=== PATIENT | female | born 1965 | race Caucasian/White ===

== ENCOUNTER 2020-11-11 08:50 | Emergency (ER) | payer OTHER ==
[~2020-11-11 08:50] MED LIST: FERROUS SULFAT325 M2 PO; HYDROCHLOROTHIA25 MG PO; LEVAQUIN TAB 5500 MG PO; LEVEMIR 10100 UNITS/ SC; LISINOPRIL20 MG PO; ZOCOR20 MG PO
[2020-11-11] MEDS ORDERED: OMNICEF 300 MG300 MG PO (09:22)
== END 2020-11-11 09:46 | disposition home or self-care (01) ==
LOC: ER1 08:50
DX: J01.90 Acute sinusitis, unspecified (principal); I10 Essential (primary) hypertension; Z88.0 Allergy status to penicillin; Z79.899 Other long term (current) drug therapy; Z79.84 Long term (current) use of oral hypoglycemic drugs
CPT/HCPCS: 99283

== ENCOUNTER → 2020-12-01 | Outpatient (CLI) | payer OTHER ==
[~2020-12-01] MED LIST changes: +OMNICEF 300 MG300 MG PO
[2020-12-01 12:33] LABS: HEMOGLOBIN 14.2 gm/dl (12.3-15.3); RED BLOOD COUNT 4.77 M/UL (4.00-5.10); WHITE BLOOD COUNT 9.5 K/UL (4.5-11.0)
[2020-12-01 12:56] LABS: BUN/CREATININE RATIO 18 (0-10)
== END ==
LOC: LAB 12:01
PROVIDERS: Physician Assistant Medical
DX: E11.9 Type 2 diabetes mellitus without complications (principal); I10 Essential (primary) hypertension; E78.2 Mixed hyperlipidemia
CPT/HCPCS: 36415; 80053; 80061; 83036; 85027

== ENCOUNTER 2021-06-23 16:02 | Emergency (ER) | payer OTHER | END 2021-06-23 16:43 | disposition left against medical advice (07) | LOC: ER1 16:02 | DX: Z53.21 Procedure and treatment not carried out due to patient leaving prior to being seen by health care provider (principal) ==

== ENCOUNTER 2021-07-07 15:11 | Observation (INO) | payer OTHER ==
[~2021-07-07] VITALS: Ht 165.1 cm; Wt 117.5 kg
[2021-07-07 17:24] LABS: HEMOGLOBIN 14.8 gm/dl (12.3-15.3); RED BLOOD COUNT 4.98 M/UL (4.00-5.10); WHITE BLOOD COUNT 16.9 K/UL (4.5-11.0)
[2021-07-07 17:59] LABS: BUN/CREATININE RATIO 25 (0-10)
[2021-07-08] MEDS ORDERED: LISINOPRIL-HCT1 EAC2 PO (03:32)
[2021-07-08] MEDS ORDERED: PRAVASTATIN SOD20 MG PO (03:32)
[2021-07-08] MEDS ORDERED: GLUCOTROL XL 5 M5 MG PO (03:33)
[2021-07-08 07:47] LABS: RED BLOOD COUNT 4.58 M/UL (4.00-5.10); WHITE BLOOD COUNT 14.6 K/UL (4.5-11.0)
[2021-07-08 08:05] LABS: BUN/CREATININE RATIO 22 (0-10)
[2021-07-09 02:14] LABS: RED BLOOD COUNT 4.48 M/UL (4.00-5.10)
[2021-07-09 02:16] LABS: WHITE BLOOD COUNT 10.1 K/UL (4.5-11.0)
[2021-07-09 02:36] LABS: BUN/CREATININE RATIO 18 (0-10)
[2021-07-09] MEDS ORDERED: CEFUROXIME250 MG PO (09:12)
[2021-07-09] MEDS ORDERED: PHENERGAN 12.12.5 M1 PO (09:12)
== END 2021-07-09 11:20 | disposition home or self-care (01) ==
LOC: ER1 15:11 → 3 EAST 22:10 → CDU 22:10 → 3 EAST 07-08 03:28
PROVIDERS: Internal Medicine; Nurse Practitioner; ADMIT Internal Medicine
DX: N30.00 Acute cystitis without hematuria (principal); E87.1 Hypo-osmolality and hyponatremia; E11.9 Type 2 diabetes mellitus without complications; I10 Essential (primary) hypertension; E78.00 Pure hypercholesterolemia, unspecified; E66.9 Obesity, unspecified; E87.6 Hypokalemia; Z88.0 Allergy status to penicillin; Z20.822 Contact with and (suspected) exposure to COVID-19
CPT/HCPCS: 0240U; 36415; 80048; 80053; 81001; 82150; 82436; 82962; 83690; 83935; 84133; 84300; 85025; 87040; 87086; 96374; 96375; 96376; 99284; J0696; J1650; J2270; J2405; J3480; Q9967

== ENCOUNTER 2021-08-04 09:55 | Emergency (ER) | payer OTHER ==
[~2021-08-04 09:55] MED LIST changes: +CEFUROXIME250 MG PO; +GLUCOTROL XL 5 M5 MG PO; +LISINOPRIL-HCT1 EAC2 PO; +PHENERGAN 12.12.5 M1 PO; +PRAVASTATIN SOD20 MG PO
[2021-08-04 11:13] LABS: RED BLOOD COUNT 4.55 M/UL (4.00-5.10); WHITE BLOOD COUNT 11.7 K/UL (4.5-11.0)
[2021-08-04 11:41] LABS: BUN/CREATININE RATIO 21 (0-10)
[2021-08-04] MEDS ORDERED: PROTONIX40 MG PO (17:56)
[2021-08-04] MEDS ORDERED: CEPHALEXIN500 M1 PO (17:56)
[2021-08-04] MEDS ORDERED: ONDANSETRON ODT4 MG SL (17:56)
== END 2021-08-04 18:30 | disposition home or self-care (01) ==
LOC: ER1 09:55 → CDU 17:53 → ER1 17:53
PROVIDERS: Physician Assistant
DX: N39.0 Urinary tract infection, site not specified (principal); E87.6 Hypokalemia; E11.9 Type 2 diabetes mellitus without complications; E78.5 Hyperlipidemia, unspecified; I10 Essential (primary) hypertension; Z88.0 Allergy status to penicillin
CPT/HCPCS: 80053; 81001; 82550; 82553; 83605; 83690; 83874; 84484; 85025; 93005; 96374; 96375; 99285; C9113; J2405; Q9967

== ENCOUNTER → 2021-08-24 | Outpatient (CLI) | payer OTHER ==
[~2021-08-24] MED LIST changes: +CEPHALEXIN500 M1 PO; +ONDANSETRON ODT4 MG SL; +PROTONIX40 MG PO
[2021-08-24 11:19] LABS: HEMOGLOBIN 12.2 gm/dl (12.3-15.3); RED BLOOD COUNT 4.16 M/UL (4.00-5.10); WHITE BLOOD COUNT 8.6 K/UL (4.5-11.0)
[2021-08-24 11:49] LABS: BUN/CREATININE RATIO 19 (0-10)
== END ==
LOC: LAB 10:51
PROVIDERS: Physician Assistant Medical
DX: E11.9 Type 2 diabetes mellitus without complications (principal); I10 Essential (primary) hypertension
CPT/HCPCS: 36415; 80053; 80061; 83036; 85027

== ENCOUNTER 2021-12-10 06:21 | Observation (INO) | payer BC ==
[~2021-12-10] VITALS: Ht 165.1 cm; Wt 115.2 kg
[~2021-12-10 06:21] MED LIST changes: +GLIPIZIDE ER5 MG PO; -GLUCOTROL XL 5 M5 MG PO
[2021-12-10 07:58] LABS: HEMOGLOBIN 13.2 gm/dl (12.3-15.3); RED BLOOD COUNT 4.59 M/UL (4.00-5.10); WHITE BLOOD COUNT 5.6 K/UL (4.5-11.0)
[2021-12-10] MEDS ORDERED: PROAIR HFA8.5 GM INH (10:47)
[2021-12-10] MEDS ORDERED: ONDANSETRON ODT4 MG PO (10:48)
[2021-12-11 06:35] LABS: HEMOGLOBIN 11.9 gm/dl (12.3-15.3); WHITE BLOOD COUNT 4.5 K/UL (4.5-11.0)
[2021-12-11 06:38] LABS: RED BLOOD COUNT 4.1 M/UL (4.00-5.10)
[2021-12-11] MEDS ORDERED: ZESTRIL20 MG PO (09:35)
[2021-12-11] MEDS ORDERED: LEVOFLOXACIN250 MG PO (10:38)
== END 2021-12-11 17:02 | disposition home or self-care (01) ==
LOC: ER1 06:21 → CDU 09:25 → MED SURG 4 19:26
PROVIDERS: Emergency Medicine; Physician Assistant Medical; ADMIT Internal Medicine
DX: R55 Syncope and collapse (principal); N17.9 Acute kidney failure, unspecified; R19.7 Diarrhea, unspecified; E11.9 Type 2 diabetes mellitus without complications; I10 Essential (primary) hypertension; E78.5 Hyperlipidemia, unspecified; E66.9 Obesity, unspecified
CPT/HCPCS: 36415; 71045; 80048; 80053; 81001; 82550; 82553; 82962; 83735; 84484; 85025; 85027; 87077; 87086; 87186; 93005; 94664; 94760; 96374; 99285; G0378; J1956